=== PATIENT | female | born 1990 | race Native Hawaiian/Other Pacific Islander ===

== ENCOUNTER 2018-02-20 07:52 | Emergency (ER) | payer OTHER ==
[2018-02-20 07:53] VITALS: BMI 21.0
--- NOTE | 2018-02-20 08:07 | C.PDOC ---
History Of Present Illness Pt is a 28 yr old female who states she has been having pressure-like, constant (but comes in waves) LLQ/left pelvic pain for 3 days. The pain is an 8 at its max (but will down to a 5 sometimes) on a 1-10 scale. Walking worsens the pain. No prior hx of similar symptoms. No N/V. LMP 01/30/2018 but she states her period was unusual at that time (not continuous). G0. No dysuria. Pt does have vaginal discharge but states that she always has vaginal discharge. Patient inquires if her pain could be due to rough sex. CT suggestive of PID and pelvicNo other complaints at this time. PMD: Dr. Tayolr . Chief Complaint (Nursing): Abdominal Pain History Per: Patient History/Exam Limitations: no limitations Onset/Duration Of Symptoms: Days Past Medical History Reviewed: Historical Data, Nursing Documentation, Vital Signs Vital Signs: Last Vital Signs Temp 97.7 F 02/20/18 07:54 Pulse 71 02/20/18 07:54 Resp 18 02/20/18 07:54 BP 106/70 02/20/18 07:54 Pulse Ox 100 02/20/18 13:38 - Medical History Other PMH: UTI Family History: States: Diabetes - Social History Hx Tobacco Use: No Hx Alcohol Use: Yes (occasional) Hx Substance Use: No - Immunization History Hx Tetanus Toxoid Vaccination: No Hx Influenza Vaccination: No Hx Pneumococcal Vaccination: No Review Of Systems Except As Marked, All Systems Reviewed And Found Negative. Constitutional: Negative for: Fever Respiratory: Negative for: Shortness of Breath Gastrointestinal: Positive for: Abdominal Pain. Negative for: Nausea, Vomiting Physical Exam - Physical Exam Appears: Well, Non-toxic, No Acute Distress Skin: Normal Color, Warm, Dry Head: Atraumatic Eye(s): bilateral: Normal Inspection Ear(s): Bilateral: Normal Nose: Normal Oral Mucosa: Moist Lips: Normal Appearing Throat: Normal Chest: Symmetrical Cardiovascular: Rhythm Regular Respiratory: Normal Breath Sounds, No Rales, No Rhonchi, No Wheezing Gastrointestinal/Abdominal: Bowel Sounds, Soft, Tenderness (LLQ), No Guarding, No Rebound Back: Normal Inspection Extremity: Bilateral: Atraumatic Neurological/Psych: Oriented x3, Normal Motor, Normal Sensation ED Course And Treatment - Laboratory Results Result Diagrams: 02/20/18 09:01 02/20/18 09:01 O2 Sat by Pulse Oximetry: 100 Medical Decision Making Medical Decision Making: Initial Impression: Undifferentiated abd pain Initial Plan: Will get test--workup will depend on whether or not pt is Progress note(s): 1:22 PM - Pt states she feels better and that she is hungry. The ultrasound and CT did not pin point and exact diagnosis but nothing life threatening or acute identified on today's workup. The remainder of workup can be done as an outpatient. CT noted possible findings of PID and recommended pelvic ultrasound; however, pelvic ultrasound was completely unremarkable. I will also get a GC/chlaydia culture prior to pt leaving ED. Hospital will contact pt if positive. Disposition Counseled Patient/Family Regarding: Studies Performed, Diagnosis, Need For Followup, Rx Given - Disposition Referrals: Guerita Solis MD [Staff Provider] - Bairon Vincent MD [Staff Provider] - [facility] [Outside] Disposition: HOME/ ROUTINE Disposition Time: 13:21 Condition: IMPROVED Additional Instructions: Ms. Archer, thank you for letting us take care of you today. Return to the ER if your symptoms worsen, or if any problems. Take the medication listed below as prescribed. 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 Several phone numbers have been given below. Please call one of the phone numbers below to make an appointment. Prescriptions: Ibuprofen [Motrin] 1 tab PO TID PRN #30 tab PRN Reason: Pain Instructions: Acute Pelvic Pain (DC) Forms: General Discharge Instructions Print Language: THAI - POA Present On Arrival: None - Clinical Impression Clinical Impression: Pelvic pain
[2018-02-20 08:32] LABS: SQUAMOUS EPITHIAL 9 /hpf (0-5); URINE BILIRUBIN NEGATIVE (NEGATIVE); URINE BLOOD NEGATIVE (NEGATIVE); URINE CLARITY Hazy (Clear); URINE COLOR Yellow (YELLOW); URINE GLUCOSE (UA) NORMAL (Normal); URINE LEUKOCYTE ESTERASE NEG Leu/uL (Negative); URINE PROTEIN NEGATIVE (NEGATIVE); URINE UROBILINOGEN NORMAL mg/dL (0.2-1.0)
[2018-02-20] MEDS ORDERED: Sodium Chloride 0.9% 1,000 ML IV ONE (08:41)
[2018-02-20] MEDS ORDERED: Sodium Chloride 0.9% 1,000 ML ONE (08:49)
[2018-02-20 09:09] LABS: BASO # 0.1 K/uL (0.0-0.2); EOS # 0.2 K/uL (0.0-0.7); EOS % 2.4 % (0.0-4.0); HEMOGLOBIN 12.1 g/dL (11.0-16.0); LYMPH # 1.7 K/uL (1.0-4.3); LYMPH % 20.7 % (20.0-40.0); MEAN CELL VOLUME 87.7 fL (81.0-99.0); MEAN CORPUSCULAR HEMOGLOBIN 29.3 pg (27.0-31.0); MEAN CORPUSCULAR HGB CONC 33.4 g/dL (33.0-37.0); MEAN PLATELET VOLUME 7.5 fL (7.2-11.7); MONO # 0.7 K/uL (0.0-0.8); MONO % 8.3 % (0.0-10.0); NEUT # 5.4 K/uL (1.8-7.0); NEUT % 67.6 % (50.0-75.0); RBC 4.15 Mil/uL (3.80-5.20); RED CELL DISTRIBUTION WIDTH 12.6 % (11.5-14.5)
[2018-02-20 09:25] LABS: ALBUMIN 4.1 g/dL (3.5-5.0); ALT/SGPT 43 U/L (9-52); AST/SGOT 32 U/L (14-36); BLOOD UREA NITROGEN 11 mg/dL (7-17); CALCIUM 8.8 mg/dl (8.6-10.4); GFR AFRICAN-AMERICAN > 60; GFR NON-AFRICAN AMERICAN > 60; LIPASE 96 U/L (23-300)
--- NOTE | 2018-02-20 09:56 | US ---
HISTORY: Left side pelvic pain COMPARISON: None available. TECHNIQUE: Transabdominal and endovaginal ultrasound examination of the pelvis was performed. FINDINGS: UTERUS: Measures 8.2 x 4.4 x 5.3 cm. Normal in size and appearance. No fibroid or other mass lesion seen. ENDOMETRIUM: Measures 6.1 mm in diameter. Unremarkable. CERVIX: No cervical abnormality identified. RIGHT OVARY: Measures 4.3 x 2.5 x 3.5 cm. No solid mass. Normal flow. LEFT OVARY: Measures 3.2 x 2.3 x 3.7 cm. No solid mass. Normal flow. FREE FLUID: Small amount of free fluid noted in the cul de sac OTHER FINDINGS: None. IMPRESSION: No evidence of acute pathology or suspicious lesion in the uterus and ovaries. Blood flow appreciated at both ovaries.
[2018-02-20] MEDS ORDERED: Iohexol 240 (50 ml) PO STA (10:03)
[2018-02-20] MEDS ORDERED: Iohexol 240 (50 ml) ONE (10:10)
[2018-02-20] MEDS ORDERED: Iodixanol 320 MG/ML 100 ML BOTTLE IV ONE (11:39)
--- NOTE | 2018-02-20 13:06 | CT ---
PROCEDURE: CT Abdomen and Pelvis with contrast HISTORY: LLQ pain COMPARISON: None. TECHNIQUE: Contrast dose: 100 mL Visipaque Radiation dose: Total exam DLP = 206.21 mGy-cm. This CT exam was performed using one or more of the following dose reduction techniques: Automated exposure control, adjustment of the mA and/or kV according to patient size, and/or use of iterative reconstruction technique. FINDINGS: LOWER THORAX: No evidence of acute pathology LIVER: Mild hepatic steatosis is noted. No evidence of acute pathology or suspicious mass in the liver GALLBLADDER AND BILE DUCTS: Unremarkable. PANCREAS: Unremarkable. No gross lesion or ductal dilatation. SPLEEN: Unremarkable. ADRENALS: Unremarkable. No mass. KIDNEYS AND URETERS: Mildly dilated collecting system of both kidneys associated with mild diffuse thickening in the ureters wall. No evidence of obstructing stone. Findings could be due to UTI or distended bladder or compression on the distal ureters. VASCULATURE: Unremarkable. No aortic aneurysm. BOWEL: Unremarkable. No obstruction. No gross mural thickening. APPENDIX: Normal appendix. PERITONEUM: Unremarkable. No free fluid. No free air. LYMPH NODES: Unremarkable. No enlarged lymph nodes. BLADDER: Mildly distended. REPRODUCTIVE: Heterogeneous enlargement of the adnexa bilaterally. Fluid noted in the endometrial cavity. Correlate clinically for PID. BONES: No acute fracture. OTHER FINDINGS: None. IMPRESSION: Mildly distended collecting system of both kidneys associated with slight enhancement and thickening of the ureteral wall. Correlate clinically for UTI. The differential diagnosis includes compression on the distal ureters in the pelvis. Heterogeneous enlargement of the adnexa bilaterally. Small amount of fluid in the endometrial cavity and in the pelvis noted. Correlate clinically for PID and if clinically warranted further assessment by ultrasound of the pelvis may be obtained.
[2018-02-20 13:46] VITALS: BP 110/75; PULSE 74; RESP 16; TEMP 98; O2SAT 99
== END 2018-02-20 13:45 | disposition home or self-care (01) ==
LOC: C.ER 07:52
DX: R10.2 Pelvic and perineal pain (principal)
CPT/HCPCS: 74177; 76830; 76856; 80053; 81001; 83690; 84702; 85025; 87491; 87591; 96361; 96374; 99284; J1885; J7040; Q9966; Q9967

== ENCOUNTER 2018-07-06 12:13 | Emergency (ER) | payer OTHER ==
[2018-07-06 12:13] VITALS: BMI 21.0
[2018-07-06 12:25] VITALS: BP 119/85; PULSE 87; RESP 20; TEMP 98.2; O2SAT 98
--- NOTE | 2018-07-06 12:44 | C.PDOC ---
History Of Present Illness 28 year old female patient presents to the ER with c/o sinus infection. Patient notes that her nasal nose drip caused her sore throat for x1 month. Patient reports having throat and face pain. Patient denies fever, chills, cough, vomiting and diarrhea. Chief Complaint (Nursing): ENT Problem History Per: Patient History/Exam Limitations: None Onset/Duration Of Symptoms: Days (x1 month) Current Symptoms Are (Timing): Still Present Past Medical History Reviewed: Historical Data, Nursing Documentation, Vital Signs Vital Signs: Last Vital Signs Temp 98.2 F 07/06/18 12:31 Pulse 87 07/06/18 12:31 Resp 20 07/06/18 12:31 BP 119/85 07/06/18 12:31 Pulse Ox 98 07/06/18 12:50 Family History: States: Diabetes - Social History Hx Tobacco Use: No Hx Alcohol Use: Yes (occasional) Hx Substance Use: No - Immunization History Hx Tetanus Toxoid Vaccination: No Hx Influenza Vaccination: No Hx Pneumococcal Vaccination: No Review Of Systems Except As Marked, All Systems Reviewed And Found Negative. Constitutional: Positive for: Other (face pain). Negative for: Fever, Chills ENT: Positive for: Throat Pain Respiratory: Negative for: Cough Gastrointestinal: Negative for: Vomiting, Diarrhea Physical Exam - Physical Exam Appears: Non-toxic, No Acute Distress Skin: Normal Color, Warm, Dry Head: Normacephalic, Tenderness (facial ) Eye(s): bilateral: Normal Inspection Ear(s): Bilateral: Normal Nose: Normal Oral Mucosa: Moist Throat: Other (uvula midline; cobble stone back of throat ) Neck: Normal ROM, Supple Cardiovascular: Rhythm Regular Respiratory: Normal Breath Sounds Neurological/Psych: Oriented x3, Normal Speech ED Course And Treatment O2 Sat by Pulse Oximetry: 98 (RA) Pulse Ox Interpretation: Normal Medical Decision Making Medical Decision Making: Impression: Sinusitis Plans: -- Motrin -- Sudafed Reassess: Disposition - Disposition Referrals: [facility] [Outside] [facility] [Outside] [facility] [place] [Outside] Disposition: HOME/ ROUTINE Disposition Time: 13:10 Condition: GOOD Additional Instructions: Follow up with your pcp in a few days and take the Sudafed, motrin as directed. Prescriptions: Ibuprofen [Motrin] 600 mg PO Q6 #20 tab Pseudoephedrine HCl [Sudafed] 30 mg PO Q8 #10 tablet Instructions: Sinusitis in Adults Forms: [facility] ([place]in[place]) - Clinical Impression Clinical Impression: Sinusitis - Scribe Statement The provider has reviewed the documentation as recorded by the Scribe Heather Menendez Provider Attestation: All medical record entries made by the Scribe were at my direction and personally dictated by me. I have reviewed the chart and agree that the record accurately reflects my personal performance of the history, physical exam, medical decision making, and the department course for this patient. I have also personally directed, reviewed, and agree with the discharge instructions and disposition.
== END 2018-07-06 13:10 | disposition home or self-care (01) ==
LOC: C.ER 12:13
DX: J32.9 Chronic sinusitis, unspecified (principal)